=== PATIENT | female | born 1935 | race African-American/Black ===

== ENCOUNTER 2021-06-22 18:01 | Inpatient (IN) | payer OTHER ==
[2021-06-22 18:41] VITALS: BMI 19.1
[2021-06-22] MEDS ORDERED: ACETAMINOPHEN 1000 MG/100 ML VIAL IVPB ONE (20:09)
[2021-06-22] MEDS ORDERED: ACETAMINOPHEN INJECTION 100 ML IVPB ONE (20:16)
[2021-06-22 21:02] LABS: BASO % 0.9 % (0-2.0); EOS % 2.3 % (0-4.5); HEMATOCRIT 37.1 % (32.4-45.2); HEMOGLOBIN 12.4 GM/dL (10.7-15.3); LYMPH % 13.5 % (8-40); MCH 31.1 pg (25.7-33.7); MCHC 33.4 g/dl (32.0-36.0); MEAN CELL VOLUME 93.2 fl (80-96); MEAN PLT VOLUME 7.2 fl (7.5-11.1); MONO % 3.4 % (3.8-10.2); NEUT % 79.9 % (42.8-82.8); PLATELET COUNT 350 10^3/uL (134-434); RBC 3.98 M/mm3 (3.60-5.2); RDW 14.4 % (11.6-15.6); WHITE BLOOD COUNT 8.2 K/mm3 (4.0-10.0)
[2021-06-22 21:17] LABS: INR 1.17 (0.83-1.09); PROTHROMBIN TIME (PATIENT) 13.1 SEC (9.7-13.0)
[2021-06-22 21:19] LABS: CALCIUM 8.9 mg/dL (8.5-10.1)
[2021-06-22 21:20] LABS: ACTIVATED PTT 29.4 SECONDS (25.2-36.5)
[2021-06-22 21:20] LABS: ALBUMIN 3.2 g/dl (3.4-5.0); BLOOD UREA NITROGEN 14.8 mg/dL (7-18)
[2021-06-22 21:24] LABS: BILIRUBIN,TOTAL 0.5 mg/dL (0.2-1); CREATININE 0.7 mg/dL (0.55-1.3)
[2021-06-22 21:25] LABS: TOT PROT 6.6 g/dl (6.4-8.2)
[2021-06-22] MEDS ORDERED: morphine CARPU-JECT 2 MG/1 ML DISP.SYRIN IVPUSH ONE (21:38)
[2021-06-22] MEDS ORDERED: morphine SULFATE 4 MG/ML VIAL ONE (21:55)
[2021-06-23] MEDS ORDERED: LORazepam 2 MG/ML SDV VIAL IVPUSH ONE
[2021-06-23 07:32] LABS: HEMATOCRIT 36.4 % (32.4-45.2); MCH 31.3 pg (25.7-33.7); MEAN CELL VOLUME 94.8 fl (80-96); MEAN PLT VOLUME 7.5 fl (7.5-11.1); PLATELET COUNT 328 10^3/uL (134-434); RBC 3.84 M/mm3 (3.60-5.2); RDW 14.1 % (11.6-15.6); WHITE BLOOD COUNT 6.4 K/mm3 (4.0-10.0)
[2021-06-23 07:43] LABS: CALCIUM 8.5 mg/dL (8.5-10.1)
[2021-06-23 07:44] LABS: BLOOD UREA NITROGEN 13.4 mg/dL (7-18); MAGNESIUM 1.8 mg/dL (1.8-2.4)
[2021-06-23 07:47] LABS: CREATININE 0.7 mg/dL (0.55-1.3)
[2021-06-23 07:48] LABS: BILIRUBIN,TOTAL 0.4 mg/dL (0.2-1); PHOSPHOROUS 2.8 mg/dL (2.5-4.9)
[2021-06-23 07:49] LABS: TOT PROT 6.4 g/dl (6.4-8.2)
[2021-06-23] MEDS ORDERED: PATIENT'S OWN MEDICATION (NON-FORMULARY) (Riluzole [Riluzole] 50 MG Tablet) PO SCH (10:00)
[2021-06-23] MEDS ORDERED: AMITRIPTYLINE HCL 10 MG TABLET PO SCH (10:00)
[2021-06-23] MEDS ORDERED: amLODIPine BESYLATE 10 MG TABLET (FP) PO SCH (10:00)
[2021-06-23] MEDS ORDERED: PATIENT'S OWN MEDICATION (NON-FORMULARY) (Mirabegron [Myrbetriq] 25 MG Tab.Er.24h) PO SCH (10:00)
[2021-06-23] MEDS ORDERED: LOSARTAN POTASSIUM 50 MG TABLET PO SCH (10:00)
[2021-06-23] MEDS ORDERED: ACETAMINOPHEN 1000 MG/100 ML VIAL IVPB PRN (10:20)
[2021-06-23] MEDS: SODIUM CHLORIDE 1,000 ML IV SCH (10:42)
[2021-06-23] MEDS: amLODIPine BESYLATE 10 MG TABLET (FP) NGT SCH (11:01)
[2021-06-23] MEDS: LOSARTAN POTASSIUM 50 MG TABLET NGT SCH (11:01)
[2021-06-23] MEDS ORDERED: AMITRIPTYLINE HCL 10 MG TABLET NGT ONE (15:00)
[2021-06-23] MEDS ORDERED: ATORVASTATIN CA 20 MG TABLET (FP) PO SCH (22:00)
[2021-06-23] MEDS: AMITRIPTYLINE HCL 10 MG TABLET NGT SCH (22:15)
[2021-06-23] MEDS: ATORVASTATIN CA 20 MG TABLET (FP) NGT SCH (22:15)
[2021-06-24] MEDS ORDERED: LORazepam 2 MG/ML SDV VIAL IVPUSH ONE (00:15)
[2021-06-24 09:03] LABS: BASO % 0.5 % (0-2.0); EOS % 0.6 % (0-4.5); HEMATOCRIT 37.8 % (32.4-45.2); HEMOGLOBIN 12.5 GM/dL (10.7-15.3); LYMPH % 16.4 % (8-40); MCH 31.3 pg (25.7-33.7); MCHC 33.1 g/dl (32.0-36.0); MEAN CELL VOLUME 94.6 fl (80-96); MEAN PLT VOLUME 7.4 fl (7.5-11.1); MONO % 7.1 % (3.8-10.2); NEUT % 75.4 % (42.8-82.8); PLATELET COUNT 344 10^3/uL (134-434); RBC 3.99 M/mm3 (3.60-5.2); RDW 14.7 % (11.6-15.6); WHITE BLOOD COUNT 5.2 K/mm3 (4.0-10.0)
[2021-06-24 09:14] LABS: INR 1.23 (0.83-1.09); PROTHROMBIN TIME (PATIENT) 13.8 SEC (9.7-13.0)
[2021-06-24 09:21] LABS: CALCIUM 8.9 mg/dL (8.5-10.1)
[2021-06-24 09:22] LABS: BLOOD UREA NITROGEN 16.8 mg/dL (7-18); MAGNESIUM 2.1 mg/dL (1.8-2.4)
[2021-06-24 09:25] LABS: CREATININE 0.7 mg/dL (0.55-1.3)
[2021-06-24 09:26] LABS: BILIRUBIN,TOTAL 0.5 mg/dL (0.2-1)
[2021-06-24 09:27] LABS: TOT PROT 6.4 g/dl (6.4-8.2)
[2021-06-24] MEDS: ACETAMINOPHEN 1000 MG/100 ML VIAL IVPB PRN (13:02)
[2021-06-24] MEDS: SODIUM CHLORIDE 1,000 ML IV SCH (13:02)
[2021-06-24] MEDS: amLODIPine BESYLATE 10 MG TABLET (FP) NGT SCH (13:03)
[2021-06-24] MEDS: AMITRIPTYLINE HCL 10 MG TABLET NGT SCH ×2 (13:03→21:26)
[2021-06-24] MEDS: LOSARTAN POTASSIUM 50 MG TABLET NGT SCH (13:03)
[2021-06-24] MEDS: LIDOCAINE 5% TOPICAL PATCH TP SCH (16:54)
[2021-06-24] MEDS: AMINO ACIDS 4.25%/D5W 1,000 ML IV SCH (20:16)
[2021-06-24] MEDS: LIDOCAINE PATCH REMOVAL MC SCH (21:27)
[2021-06-24] MEDS: ATORVASTATIN CA 20 MG TABLET (FP) NGT SCH (21:27)
[2021-06-25] MEDS: ACETAMINOPHEN 1000 MG/100 ML VIAL IVPB PRN (05:02)
[2021-06-25] MEDS: LOSARTAN POTASSIUM 50 MG TABLET NGT SCH (10:11)
[2021-06-25] MEDS: AMITRIPTYLINE HCL 10 MG TABLET NGT SCH ×2 (10:11→21:52)
[2021-06-25] MEDS: amLODIPine BESYLATE 10 MG TABLET (FP) NGT SCH (10:11)
[2021-06-25] MEDS ORDERED: MIDAZOLAM HCL 2 MG/2 ML SINGLE DOSE VIAL IVPUSH ONE (10:20)
[2021-06-25] MEDS ORDERED: GLUCAGON 1 MG KIT IVPUSH ONE (10:22)
[2021-06-25 10:37] LABS: BASO % 0.3 % (0-2.0); EOS % 0.7 % (0-4.5); HEMATOCRIT 39.1 % (32.4-45.2); HEMOGLOBIN 12.6 GM/dL (10.7-15.3); LYMPH % 12.2 % (8-40); MCH 30.9 pg (25.7-33.7); MCHC 32.1 g/dl (32.0-36.0); MEAN CELL VOLUME 96.4 fl (80-96); MEAN PLT VOLUME 7.3 fl (7.5-11.1); MONO % 8.8 % (3.8-10.2); PLATELET COUNT 391 10^3/uL (134-434); RBC 4.06 M/mm3 (3.60-5.2); RDW 15.1 % (11.6-15.6); WHITE BLOOD COUNT 7.4 K/mm3 (4.0-10.0)
[2021-06-25 10:49] LABS: CALCIUM 8.8 mg/dL (8.5-10.1)
[2021-06-25 10:50] LABS: ALBUMIN 3.1 g/dl (3.4-5.0); BLOOD UREA NITROGEN 30.4 mg/dL (7-18); MAGNESIUM 2.1 mg/dL (1.8-2.4)
[2021-06-25 10:53] LABS: CREATININE 0.8 mg/dL (0.55-1.3)
[2021-06-25 10:54] LABS: BILIRUBIN,TOTAL 0.6 mg/dL (0.2-1); TOT PROT 6.5 g/dl (6.4-8.2)
[2021-06-25] MEDS: LIDOCAINE 5% TOPICAL PATCH TP SCH (12:58)
[2021-06-25] MEDS: traMADol HCL 50 MG TABLET PO PRN (16:44)
[2021-06-25] MEDS: AMINO ACIDS 4.25%/D5W 1,000 ML IV SCH (17:34)
[2021-06-25] MEDS ORDERED: PT OWN MED DRAWER 7, Y5N ONE (21:10)
[2021-06-25] MEDS: HEPARIN NA (PORCINE) 5,000 UNITS/ML 1ML VIAL SQ SCH (21:52)
[2021-06-25] MEDS: LIDOCAINE PATCH REMOVAL MC SCH (21:52)
[2021-06-25] MEDS: ATORVASTATIN CA 20 MG TABLET (FP) NGT SCH (21:53)
[2021-06-25] MEDS ORDERED: ACETAMINOPHEN 1000 MG/100 ML VIAL IVPB ONE (22:51)
[2021-06-26 08:57] LABS: BASO % 0.8 % (0-2.0); EOS % 0.4 % (0-4.5); HEMATOCRIT 40.8 % (32.4-45.2); HEMOGLOBIN 13.5 GM/dL (10.7-15.3); LYMPH % 6.8 % (8-40); MCH 31.2 pg (25.7-33.7); MCHC 32.9 g/dl (32.0-36.0); MEAN CELL VOLUME 94.7 fl (80-96); MEAN PLT VOLUME 7.6 fl (7.5-11.1); MONO % 4.2 % (3.8-10.2); NEUT % 87.8 % (42.8-82.8); PLATELET COUNT 335 10^3/uL (134-434); RBC 4.31 M/mm3 (3.60-5.2); RDW 14.8 % (11.6-15.6)
[2021-06-26 09:11] LABS: ALBUMIN 3.2 g/dl (3.4-5.0); BLOOD UREA NITROGEN 20.8 mg/dL (7-18); CALCIUM 8.6 mg/dL (8.5-10.1)
[2021-06-26 09:12] LABS: MAGNESIUM 1.9 mg/dL (1.8-2.4)
[2021-06-26 09:14] LABS: CREATININE 0.7 mg/dL (0.55-1.3)
[2021-06-26 09:16] LABS: BILIRUBIN,TOTAL 0.6 mg/dL (0.2-1); TOT PROT 6.8 g/dl (6.4-8.2)
[2021-06-26] MEDS: AMITRIPTYLINE HCL 10 MG TABLET NGT SCH ×2 (10:59→21:27)
[2021-06-26] MEDS: HEPARIN NA (PORCINE) 5,000 UNITS/ML 1ML VIAL SQ SCH ×2 (10:59→21:27)
[2021-06-26] MEDS: LIDOCAINE 5% TOPICAL PATCH TP SCH (10:59)
[2021-06-26] MEDS: LOSARTAN POTASSIUM 50 MG TABLET NGT SCH (10:59)
[2021-06-26] MEDS: amLODIPine BESYLATE 10 MG TABLET (FP) NGT SCH (10:59)
[2021-06-26] MEDS ORDERED: LOSARTAN POTASSIUM 50 MG TABLET PEG ONE (17:31)
[2021-06-26] MEDS: LIDOCAINE PATCH REMOVAL MC SCH (21:27)
[2021-06-26] MEDS: ATORVASTATIN CA 20 MG TABLET (FP) NGT SCH (21:28)
[2021-06-27] MEDS ORDERED: PT OWN MED DRAWER 7, Y5N ONE ×2 (11:19→20:56)
[2021-06-27] MEDS: HEPARIN NA (PORCINE) 5,000 UNITS/ML 1ML VIAL SQ SCH ×2 (11:30→22:09)
[2021-06-27] MEDS: AMITRIPTYLINE HCL 10 MG TABLET NGT SCH ×2 (11:31→22:09)
[2021-06-27] MEDS: amLODIPine BESYLATE 10 MG TABLET (FP) NGT SCH (11:31)
[2021-06-27] MEDS: LOSARTAN POTASSIUM 50 MG TABLET NGT SCH (11:31)
[2021-06-27] MEDS: traMADol HCL 50 MG TABLET PO PRN (11:31)
[2021-06-27] MEDS: LIDOCAINE 5% TOPICAL PATCH TP SCH (11:45)
[2021-06-27 13:53] LABS: HEMATOCRIT 38.6 % (32.4-45.2); HEMOGLOBIN 12.7 GM/dL (10.7-15.3); MCH 31.3 pg (25.7-33.7); MCHC 32.8 g/dl (32.0-36.0); MEAN CELL VOLUME 95.3 fl (80-96); MEAN PLT VOLUME 7.8 fl (7.5-11.1); PLATELET COUNT 350 10^3/uL (134-434); RBC 4.05 M/mm3 (3.60-5.2); RDW 15.1 % (11.6-15.6); WHITE BLOOD COUNT 9.7 K/mm3 (4.0-10.0)
[2021-06-27 14:09] LABS: CALCIUM 8.6 mg/dL (8.5-10.1)
[2021-06-27 14:10] LABS: ALBUMIN 2.7 g/dl (3.4-5.0); MAGNESIUM 1.9 mg/dL (1.8-2.4)
[2021-06-27 14:13] LABS: CREATININE 0.7 mg/dL (0.55-1.3)
[2021-06-27] MEDS ORDERED: POTASSIUM CHLORIDE ORAL LIQUID 20 MEQ/15 ML PO ONE (14:13)
[2021-06-27 14:15] LABS: BILIRUBIN,TOTAL 0.6 mg/dL (0.2-1); TOT PROT 6.2 g/dl (6.4-8.2)
[2021-06-27] MEDS ORDERED: KCL 10 MEQ IVPB 10 MEQ/100 ML INFUS.BAG IVPB SCH ×2 (14:15)
[2021-06-27 14:26] LABS: ANISOCYTOSIS 0; HELMET CELLS 0; HOWELL-JOLLY BODIES 0; MACROCYTOSIS 0; OVALOCYTE 0; PLATELET ESTIMATE NORMAL; ROULEAU 0; SICKELED CELLS 0; TARGET CELLS 0; TEAR DROP CELLS 0; TOXIC GRANULATION 0
[2021-06-27] MEDS ORDERED: SIMETHICONE 40 MG/0.6 ML BOTTLE PO PRN (17:06)
[2021-06-27] MEDS: ACETAMINOPHEN 325 MG TABLET (FP) PO PRN (18:38)
[2021-06-27 19:54] LABS: ALBUMIN 2.7 g/dl (3.4-5.0); BLOOD UREA NITROGEN 22.4 mg/dL (7-18); CALCIUM 8.9 mg/dL (8.5-10.1)
[2021-06-27 19:57] LABS: CREATININE 0.7 mg/dL (0.55-1.3)
[2021-06-27 19:59] LABS: BILIRUBIN,TOTAL 0.5 mg/dL (0.2-1); TOT PROT 6.2 g/dl (6.4-8.2)
[2021-06-27] MEDS: LIDOCAINE PATCH REMOVAL MC SCH (22:09)
[2021-06-27] MEDS: ATORVASTATIN CA 20 MG TABLET (FP) NGT SCH (22:09)
[2021-06-28] MEDS ORDERED: PT OWN MED DRAWER 7, Y5N ONE ×2 (10:34→21:16)
[2021-06-28] MEDS: HEPARIN NA (PORCINE) 5,000 UNITS/ML 1ML VIAL SQ SCH ×2 (10:57→21:27)
[2021-06-28] MEDS: LIDOCAINE 5% TOPICAL PATCH TP SCH (10:57)
[2021-06-28] MEDS: amLODIPine BESYLATE 10 MG TABLET (FP) NGT SCH (10:58)
[2021-06-28] MEDS: LOSARTAN POTASSIUM 50 MG TABLET NGT SCH (10:58)
[2021-06-28] MEDS: ACETAMINOPHEN 325 MG TABLET (FP) PO PRN (10:58)
[2021-06-28] MEDS: AMITRIPTYLINE HCL 10 MG TABLET NGT SCH ×2 (10:58→21:26)
[2021-06-28] MEDS ORDERED: POLYETHYLENE GLYCOL 3350 119 GM BTL PO ONE (13:59)
[2021-06-28] MEDS ORDERED: POLYETHYLENE GLYCOL (HEALTHYLAX) 3350 17 GM PACKET PO ONE (15:15)
[2021-06-28 17:55] LABS: BASO % 0.4 % (0-2.0); EOS % 1.3 % (0-4.5); HEMATOCRIT 37.4 % (32.4-45.2); HEMOGLOBIN 12.3 GM/dL (10.7-15.3); LYMPH % 12.4 % (8-40); MCH 31.5 pg (25.7-33.7); MCHC 32.9 g/dl (32.0-36.0); MEAN CELL VOLUME 95.9 fl (80-96); MEAN PLT VOLUME 8.4 fl (7.5-11.1); MONO % 7.4 % (3.8-10.2); NEUT % 78.5 % (42.8-82.8); PLATELET COUNT 327 10^3/uL (134-434); RDW 15.1 % (11.6-15.6); WHITE BLOOD COUNT 7.6 K/mm3 (4.0-10.0)
[2021-06-28 18:18] LABS: BLOOD UREA NITROGEN 23.5 mg/dL (7-18)
[2021-06-28 18:20] LABS: ALBUMIN 2.6 g/dl (3.4-5.0); CALCIUM 8.6 mg/dL (8.5-10.1)
[2021-06-28 18:23] LABS: CREATININE 0.6 mg/dL (0.55-1.3)
[2021-06-28 18:25] LABS: BILIRUBIN,TOTAL 0.8 mg/dL (0.2-1)
[2021-06-28] MEDS: traMADol HCL 50 MG TABLET PO PRN (20:00)
[2021-06-28] MEDS: ATORVASTATIN CA 20 MG TABLET (FP) NGT SCH (21:26)
[2021-06-28] MEDS: LIDOCAINE PATCH REMOVAL MC SCH (22:16)
[2021-06-28] MEDS ORDERED: ACETAMINOPHEN 1000 MG/100 ML VIAL IVPB ONE (22:41)
[2021-06-29 08:45] LABS: BASO % 0.2 % (0-2.0); EOS % 2.5 % (0-4.5); HEMATOCRIT 35.1 % (32.4-45.2); HEMOGLOBIN 11.5 GM/dL (10.7-15.3); LYMPH % 12.5 % (8-40); MCH 31.5 pg (25.7-33.7); MCHC 32.8 g/dl (32.0-36.0); MEAN CELL VOLUME 95.8 fl (80-96); NEUT % 76.8 % (42.8-82.8); PLATELET COUNT 340 10^3/uL (134-434); RBC 3.66 M/mm3 (3.60-5.2); RDW 15.2 % (11.6-15.6); WHITE BLOOD COUNT 6.3 K/mm3 (4.0-10.0)
[2021-06-29 09:49] LABS: CALCIUM 8.9 mg/dL (8.5-10.1)
[2021-06-29 09:50] LABS: ALBUMIN 2.4 g/dl (3.4-5.0); BLOOD UREA NITROGEN 26.3 mg/dL (7-18)
[2021-06-29 09:53] LABS: CREATININE 0.6 mg/dL (0.55-1.3)
[2021-06-29 09:55] LABS: BILIRUBIN,TOTAL 0.2 mg/dL (0.2-1); TOT PROT 5.8 g/dl (6.4-8.2)
[2021-06-29] MEDS: LIDOCAINE 5% TOPICAL PATCH TP SCH (11:01)
[2021-06-29] MEDS: LOSARTAN POTASSIUM 50 MG TABLET NGT SCH (11:16)
[2021-06-29] MEDS: HEPARIN NA (PORCINE) 5,000 UNITS/ML 1ML VIAL SQ SCH ×2 (11:16→21:53)
[2021-06-29] MEDS: AMITRIPTYLINE HCL 10 MG TABLET NGT SCH ×2 (11:16→21:53)
[2021-06-29] MEDS: amLODIPine BESYLATE 10 MG TABLET (FP) NGT SCH (11:17)
[2021-06-29] MEDS: MULTIVITAMINS (DAILY MVI) TABLET (FP) PO SCH (11:17)
[2021-06-29] MEDS: traMADol HCL 50 MG TABLET PO PRN (11:54)
[2021-06-29] MEDS ORDERED: PT OWN MED DRAWER 7, Y5N ONE ×3 (11:58→22:13)
[2021-06-29] MEDS: LIDOCAINE PATCH REMOVAL MC SCH (21:53)
[2021-06-29] MEDS: ATORVASTATIN CA 20 MG TABLET (FP) NGT SCH (21:53)
[2021-06-30] MEDS ORDERED: PT OWN MED DRAWER 7, Y5N ONE (09:42)
[2021-06-30] MEDS: HEPARIN NA (PORCINE) 5,000 UNITS/ML 1ML VIAL SQ SCH (09:46)
[2021-06-30] MEDS: LIDOCAINE 5% TOPICAL PATCH TP SCH (09:46)
[2021-06-30] MEDS: LOSARTAN POTASSIUM 50 MG TABLET NGT SCH (09:47)
[2021-06-30] MEDS: MULTIVITAMINS (DAILY MVI) TABLET (FP) PO SCH (09:47)
[2021-06-30] MEDS: amLODIPine BESYLATE 10 MG TABLET (FP) NGT SCH (09:47)
[2021-06-30] MEDS: AMITRIPTYLINE HCL 10 MG TABLET NGT SCH (09:47)
[2021-06-30] MEDS: ACETAMINOPHEN 325 MG TABLET (FP) PO PRN (12:05)
[2021-06-30 13:24] LABS: ALBUMIN 2.7 g/dl (3.4-5.0); BLOOD UREA NITROGEN 23.6 mg/dL (7-18); CALCIUM 9.1 mg/dL (8.5-10.1); MAGNESIUM 2.2 mg/dL (1.8-2.4)
[2021-06-30 13:28] LABS: CREATININE 0.7 mg/dL (0.55-1.3)
[2021-06-30 13:29] LABS: BILIRUBIN,TOTAL 0.5 mg/dL (0.2-1); TOT PROT 6.2 g/dl (6.4-8.2)
[2021-06-30 14:14] VITALS: BP 139/78; PULSE 95; TEMP 97.9
== END 2021-06-30 14:11 | DRG 57 ==
LOC: JER 18:01 → JERBED 22:10 → INTOOBSV 22:10 → UNDOADMOB 22:10 → JASUSAT 22:18 → JERBED 06-23 13:43 → J5S 06-23 20:36
PROVIDERS: ATTEND Nurse Practitioner Acute Care
PROC: 0DH63UZ Insertion of Feeding Device into Stomach, Percutaneous Approach (ICD-10-PCS; principal; 2021-06-25)
PROC: BD12ZZZ Fluoroscopy of Stomach (ICD-10-PCS; 2021-06-25)
DX: G12.21 Amyotrophic lateral sclerosis (principal); R13.10 Dysphagia, unspecified; I10 Essential (primary) hypertension; E78.5 Hyperlipidemia, unspecified; R47.81 Slurred speech; H40.9 Unspecified glaucoma; R47.1 Dysarthria and anarthria; G89.29 Other chronic pain
CPT/HCPCS: 36415; 49440; 71045-TC-FY; 74018-TC-FY; 74230-TC-FY; 80053; 83735; 84100; 85025; 85027; 85610; 85730; 86850; 86900; 86901; 92611-GN; 93005; 93010; 97161-GP; 99285-25; C9803; J0131; J1644; U0003; U0005

== ENCOUNTER 2021-08-03 11:58 | Emergency (ER) | payer OTHER ==
[2021-08-03 12:34] VITALS: BMI 19.4
[2021-08-04 02:07] VITALS: PULSE 115
[2021-08-04 05:49] VITALS: BP 153/88; TEMP 98
== END 2021-08-04 05:50 ==
LOC: JER 11:58
DX: G12.21 Amyotrophic lateral sclerosis (principal); K94.23 Gastrostomy malfunction
CPT/HCPCS: 49450; 99283-25